=== PATIENT | male | born 1945 | race Caucasian/White ===

== ENCOUNTER → 2017-02-21 | Outpatient (CLI) | payer MEDICARE, OTHER ==
[~2017-02-21] MED LIST: ALBUTEROL2.5 MG/31 IH; ALLEGRA ALLERG180 MG PO; ALLOPURINOL 10100 M2 PO; ASA5UEC PO; ASPIR 8181 MG PO; AUGMENTIN 875875 MG PO; AVELOX 400 MG400 MG PO; AZASITE2.5 ML OP; BACTRIM DS TAB1 EACH PO; BROMDAY1.7 ML; BUMETANIDE0.25 MG/1 PO; CARDURA1 MG PO; CARVEDILOL12.5 MG PO; COZAAR 50 MG TA50 M2 PO; DUONEB 2.5-0.5 M3 ML INH; ELIQUIS5 MG PO; FLONASE 0.05%50 MCG NASAL; FUROSEMIDE 40 M40 MG PO; IMDUR120 MG PO; INDOMETHACIN 5050 MG; ISOSORBIDE MON120 MG PO; LANOXIN 0.120.125 M1 PO; LEVAQUIN 500 M500 M2 PO; LEVAQUIN 500 M500 M4 PO; LISINOPRIL40 MG PO; MEDROLDOSEPACK PO; NIASPAN ER 101000 M1 PO; NITROGLYCERIN0.4 MG SL; NORCO 5-325 TA1 EACH PO; OMEPRAZOLE20 M2 PO; PLAVIX 75 MG TA75 MG PO; POTASSIUM20 PO; PRADAXA150 MG PO; PRED FORTE 1% EY5 M1 OP; PREDNISONE 10 M10 MG PO; RESTORIL15 MG PO; SINEMET 10-1001 EAC1 PO; SINGULAIR 10 MG10 M1 PO; SPIRIVA INH; SYMBICORT160 MCG/4.; TESSALON PERLE100 MG PO; VITAMIN D1000 UNIT PO; ZETIA10 MG PO; ZPAK
[2017-02-21 11:57] LABS: CALCIUM 8.2 mg/dL (8.5-10.1); CREATININE 2.2 mg/dL (0.6-1.3); POTASSIUM 3.7 mmol/L (3.5-5.1)
== END ==
LOC: M.LAB 10:48
PROVIDERS: Internal Medicine Cardiovascular Disease
DX: I25.5 Ischemic cardiomyopathy (principal); I25.10 Atherosclerotic heart disease of native coronary artery without angina pectoris; I11.0 Hypertensive heart disease with heart failure; I50.42 Chronic combined systolic (congestive) and diastolic (congestive) heart failure; J15.6 Pneumonia due to other Gram-negative bacteria; J96.01 Acute respiratory failure with hypoxia; J96.22 Acute and chronic respiratory failure with hypercapnia; J44.1 Chronic obstructive pulmonary disease with (acute) exacerbation; E78.00 Pure hypercholesterolemia, unspecified; I73.9 Peripheral vascular disease, unspecified; K21.9 Gastro-esophageal reflux disease without esophagitis; N40.0 Benign prostatic hyperplasia without lower urinary tract symptoms; I48.0 Paroxysmal atrial fibrillation; I48.2 Chronic atrial fibrillation; I65.29 Occlusion and stenosis of unspecified carotid artery; E11.9 Type 2 diabetes mellitus without complications; E66.9 Obesity, unspecified; Z68.34 Body mass index [BMI] 34.0-34.9, adult; Z86.73 Personal history of transient ischemic attack (TIA), and cerebral infarction without residual deficits

== ENCOUNTER → 2017-08-21 | Outpatient (CLI) | payer MEDICARE, OTHER ==
[2017-08-21 09:30] LABS: CALCIUM 8.5 mg/dL (8.5-10.1); CREATININE 1.7 mg/dL (0.6-1.3); POTASSIUM 4.2 mmol/L (3.5-5.1)
--- NOTE | 2017-08-21 12:43 | 2DMMODE ---
[place] [address] 2 D/M-MODE ECHOCARDIOGRAM Name: DARYL FERNANDEZ Room: [facility]#: [id number] Admission: 08/21/17 Attend Phys: Gregory Shaw, Discharge: Date of : 47 Date of Service: 08/21/17 1242 Report #: [id number] THIS REPORT FOR: //name// APPROVED REPORT Study performed: 08/21/2017 09:08:23 EXAM: Comprehensive 2D, Doppler, and color-flow Echocardiogram Patient Location: Out-Patient Status: routine BSA: 2.55 HR: 74 bpm BP: 120/78 mmHg Other Information Study Quality: Good Indications Cardiomyopathy 2D Dimensions LVEF(%): 61.53 (>50%) IVSd: 13.44 (7-11mm) LVOT Diam: 20.64 (18-24mm) LVDd: 52.55 mm PWd: 12.98 (7-11mm) Ascending Ao: 30.89 (22-36mm) LVDs: 35.05 (25-40mm) Aortic Root: 34.80 mm Franco's LVEF: 61.53 % Volumes Left Atrial Volume (Systole) LA ESV Index: 24.10 mL/m2 Aortic Valve AoV Peak Stevenson.: 1.03 m/s AO Peak Gr.: 4.27 mmHg LVOT Max P.88 mmHg AO Mean Gr.: 2.54 mmHg LVOT Mean P.89 mmHg LVOT Max V: 0.69 m/s AO V2 VTI: 18.84 cm LVOT Mean V: 0.43 m/s ALMITA (VTI): 2.57 cm2 LVOT V1 VTI: 14.45 cm Mitral Valve MV Decel. Time: 147.94 ms MV PHT: 42.90 [place] [address] 2 D/M-MODE ECHOCARDIOGRAM Name: DARYL FERNANDEZ Room: [facility]#: [id number] Admission: 08/21/17 Attend Phys: Gregory Shaw, Discharge: Date of : 47 Date of Service: 08/21/17 1242 Report #: [id number] MVA (PHT): 5.13 cm2 TDI Medial E' Stevenson.: 0.08 m/s Lateral E' Stevenson.: 0.10 m/s Pulmonary Valve PV Peak Stevenson.: 0.85 m/s PV Peak Gr.: 2.89 mmHg Tricuspid Valve RAP Estimate: 10.00 mmHg TR Peak Gr.: 26.10 mmHg RVSP: 36.10 mmHg PA Pressure: 36.10 mmHg Left Ventricle The left ventricle is normal size. There is mild global hypokinesis without focal wall motion abnormality. Mild concentric left ventricular hypertrophy. Left ventricular systolic function is mildly decreased. LVEF is 45-50%. This study is not technically sufficient to allow evaluation of the LV diastolic function due to atrial fibrillation. Right Ventricle The right ventricle is normal size. The right ventricular systolic function is normal. Atria Left atrium is mildly dilated. Right atrium is mildly dilated. Aortic Valve The aortic valve is normal in structure. No aortic regurgitation is present. There is no aortic valvular stenosis. Mitral Valve The mitral valve is normal in structure. Mild mitral regurgitation. No evidence of mitral valve stenosis. Tricuspid Valve The tricuspid valve is normal in structure. Trace tricuspid regurgitation. The RVSP is 30-35 mmHg. Pulmonic Valve The pulmonary valve is normal in structure. There is no pulmonic valvular [place] [address] 2 D/M-MODE ECHOCARDIOGRAM Name: DARYL FERNANDEZ Room: [facility]#: [id number] Admission: 08/21/17 Attend Phys: Gregory Shaw, Discharge: Date of : 47 Date of Service: 08/21/17 1242 Report #: [id number] Great Vessels The aortic root is normal in size. IVC is dilated and collapses >50% with inspiration. Pericardium There is no pericardial effusion. <Conclusion> The left ventricle is normal size. Mild concentric left ventricular hypertrophy. Left ventricular systolic function is mildly decreased. LVEF is 45-50%. This study is not technically sufficient to allow evaluation of the LV diastolic function due to atrial fibrillation. There is mild global hypokinesis without focal wall motion abnormality. Left atrium is mildly dilated. Right atrium is mildly dilated. Mild mitral regurgitation. Trace tricuspid regurgitation. The RVSP is 30-35 mmHg. IVC is dilated and collapses >50% with inspiration. <ELECTRONICALLY SIGNED> By: Blayne Bell MD, FACC 08/21/17 [phone] Blayne Bell MD, FACC /INF
== END ==
LOC: M.CRD 08:27
PROVIDERS: Internal Medicine Cardiovascular Disease
DX: I34.0 Nonrheumatic mitral (valve) insufficiency (principal); I51.7 Cardiomegaly; I25.5 Ischemic cardiomyopathy; I50.32 Chronic diastolic (congestive) heart failure; N18.3 Chronic kidney disease, stage 3 (moderate)

== ENCOUNTER → 2017-09-03 | Outpatient (CLI) | payer MEDICARE, OTHER ==
[2017-09-03 09:55] LABS: CALCIUM 8.4 mg/dL (8.5-10.1); CREATININE 1.4 mg/dL (0.6-1.3); POTASSIUM 4.2 mmol/L (3.5-5.1)
[2017-09-04 06:05] LABS: GLYCOHEMOGLOBIN (HGB A1C) 5.9 % (4.8-5.6)
== END ==
LOC: M.LAB 09:18
PROVIDERS: Nurse Practitioner
DX: N18.3 Chronic kidney disease, stage 3 (moderate) (principal); R73.03 Prediabetes; I25.5 Ischemic cardiomyopathy

== ENCOUNTER → 2017-09-14 | Outpatient (CLI) | payer MEDICARE, OTHER | LOC: M.RAD 09:23 | DX: J90 Pleural effusion, not elsewhere classified (principal); J98.11 Atelectasis; J44.9 Chronic obstructive pulmonary disease, unspecified; I11.0 Hypertensive heart disease with heart failure; I50.22 Chronic systolic (congestive) heart failure; I25.10 Atherosclerotic heart disease of native coronary artery without angina pectoris; E78.00 Pure hypercholesterolemia, unspecified; I48.91 Unspecified atrial fibrillation ==

== ENCOUNTER → 2017-12-06 | Outpatient (CLI) | payer MEDICARE, OTHER ==
[2017-12-06 12:24] LABS: CALCIUM 8.6 mg/dL (8.5-10.1); CREATININE 1.4 mg/dL (0.6-1.3); POTASSIUM 3.8 mmol/L (3.5-5.1)
== END ==
LOC: M.LAB 11:48
PROVIDERS: Nurse Practitioner Family
DX: I50.22 Chronic systolic (congestive) heart failure (principal); N18.3 Chronic kidney disease, stage 3 (moderate)

== ENCOUNTER → 2018-04-17 | Outpatient (CLI) | payer MEDICARE, OTHER ==
[2018-04-17 10:09] LABS: CALCIUM 8.8 mg/dL (8.5-10.1); CREATININE 1.5 mg/dL (0.6-1.3)
== END ==
LOC: M.LAB 09:27
PROVIDERS: Family Medicine
DX: I50.22 Chronic systolic (congestive) heart failure (principal)

== ENCOUNTER → 2018-07-09 | Outpatient (CLI) | payer MEDICARE, OTHER ==
--- NOTE | 2018-07-09 12:38 | 2DMMODE ---
[facility] [address] [place] [address] 2 D/M-MODE ECHOCARDIOGRAM Name: DARYL FERNANDEZ Room: [facility]#: [id number] Admission: 07/09/18 Attend Phys: Gregory Shaw, Discharge: Date of : 47 Date of Service: 07/09/18 1238 Report #: [id number] THIS REPORT FOR: //name// APPROVED REPORT Study performed: 07/09/2018 08:45:49 EXAM: Limited 2D Echocardiogram Patient Location: Out-Patient BSA: 2.60 HR: 72 bpm BP: 120/78 mmHg Other Information Study Quality: Good Indications Congestive Heart Failure Atrial Fibrillation Cardiomyopathy Left Ventricle The left ventricle is normal size. There is global hypokinesis without focal wall motion abnormality. Mild concentric left ventricular hypertrophy. Left ventricular systolic function is mildly decreased. LVEF is 45-50%. Right Ventricle The right ventricle is normal size. The right ventricular systolic function is normal. Atria Left atrium is mildly dilated. Right atrium is mildly dilated. Aortic Valve The aortic valve is normal in structure. Mitral Valve The mitral valve is normal in structure. Tricuspid Valve The tricuspid valve is normal in structure. Pulmonic Valve [address] [address] 2 D/M-MODE ECHOCARDIOGRAM Name: DARYL FERNANDEZ Ryan Room: [facility].#: [id number] Admission: 07/09/18 Attend Phys: Gregory Shaw, Discharge: Date of : 47 Date of Service: 07/09/18 1238 Report #: [id number] Pulmonic valve is not well visualized. Great Vessels The aortic root is normal in size. IVC is normal in size and collapses >50% with inspiration. Pericardium There is no pericardial effusion. There is no pleural effusion. <Conclusion> The left ventricle is normal size. Mild concentric left ventricular hypertrophy. Left ventricular systolic function is mildly decreased. LVEF is 45-50%. There is global hypokinesis without focal wall motion abnormality. Left atrium is mildly dilated. Right atrium is mildly dilated. <ELECTRONICALLY SIGNED> By: Blayne Bell MD, FACC 07/09/18 1238 [id number] Blayne Bell MD, FACC /INF
== END ==
LOC: M.CRD 08:37
DX: I25.5 Ischemic cardiomyopathy (principal); I11.0 Hypertensive heart disease with heart failure; I50.22 Chronic systolic (congestive) heart failure; Z88.8 Allergy status to other drugs, medicaments and biological substances